=== PATIENT | male | born 1935 | race Caucasian/White ===

== ENCOUNTER 2016-09-25 00:01 | Outpatient (CLI) | payer MEDICARE ==
[2016-09-25 03:22] LABS: APPEARANCE HAZY (CLEAR); BILIRUBIN NEGATIVE (NEGATIVE); COLOR YELLOW (YELLOW); EPITHELIAL CELLS OCC /hpf (0-5); GLUCOSE NEGATIVE (NEGATIVE); KETONE NEGATIVE (NEGATIVE); LEUKOCYTE ESTERASE 2+ (NEGATIVE); NITRITE NEGATIVE (NEGATIVE); PROTEIN 3+ mg/dL (NEGATIVE); UROBILINOGEN NORMAL (NORMAL); WHITE CELLS - URINE 25-50 /hpf (0-5)
[2016-09-25 03:23] LABS: BACTERIA MANY /hpf (NONE SEEN); HYALINE CAST OCC /lpf (NONE SEEN)
== END 2016-09-25 23:59 | disposition home or self-care (01) ==
LOC: D.LABREF 00:01
PROVIDERS: Urology
DX: N39.0 Urinary tract infection, site not specified (principal)

== ENCOUNTER → 2016-09-25 01:22 | Outpatient (CLI) | payer SELFPAY | LOC: D.LABREF 01:22 | DX: N39.0 Urinary tract infection, site not specified (principal) ==

== ENCOUNTER → 2016-10-08 19:34 | Outpatient (CLI) | payer MEDICARE ==
[2016-10-08 20:58] LABS: APPEARANCE CLEAR (CLEAR); BILIRUBIN NEGATIVE (NEGATIVE); COLOR YELLOW (YELLOW); GLUCOSE 50 mg/dL (NEGATIVE); KETONE NEGATIVE (NEGATIVE); NITRITE NEGATIVE (NEGATIVE); PROTEIN 1+ mg/dL (NEGATIVE); SPECIFIC GRAVITY 1.005 (1.005-1.020); UROBILINOGEN NORMAL (NORMAL)
[2016-10-08 21:00] LABS: BACTERIA FEW /hpf (NONE SEEN); LEUKOCYTE ESTERASE 1+ (NEGATIVE); RED CELLS - URINE OCC /hpf (0-5); WHITE CELLS - URINE 25-50 /hpf (0-5)
== END | disposition home or self-care (01) ==
LOC: D.LABREF 19:34
PROVIDERS: Urology
DX: N39.0 Urinary tract infection, site not specified (principal)

== ENCOUNTER 2016-11-13 06:03 | Day surgery (SDC) | payer MEDICARE ==
[2016-11-12 13:41] LABS: BASOPHILS 0.5 % (0-2); EOSINOPHILS 5.5 % (0-7); HEMOGLOBIN 15.5 g/dL (13.5-17.5); IMMATURE GRANULOCYTES 0.4 % (0-5); LYMPHOCYTES 45.8 % (15-50); MCH 29.9 pg (26.0-34.0); MCHC 33.7 g/dL (31.0-37.0); MCV 88.8 fL (80.0-100.0); MEAN PLATELET VOLUME 8.2 fL (7.4-10.4); MONOCYTES 5.8 % (2-11); PLATELET COUNT 194 10x3/uL (130-400); RBC 5.18 10x6/uL (4.20-6.10); RDW 14.7 % (11.5-14.5)
[2016-11-12 14:07] LABS: ANION GAP 12.9 mmol/L (8-16); CALCIUM 8.7 mg/dL (8.5-10.1); CARBON DIOXIDE 26.9 mmol/L (21.0-32.0); CREATININE - SERUM 2.3 mg/dL (0.6-1.3); POTASSIUM - SERUM 4.8 mmol/L (3.5-5.1)
[~2016-11-13] VITALS: Ht 172.7 cm; Wt 68.0 kg
[~2016-11-13 06:03] MED LIST: ASPIRIN EC325 M1 PO; FISH OIL 1,0001 CA1 PO; LISINOPRIL5 MG PO
[2016-11-13 06:56] VITALS: BP 115/89; Ht 172.7 cm; Wt 68.0 kg
--- NOTE | 2016-11-13 12:06 | OP ---
PATIENT NAME: DESIRAE LEMUS JR MEDICAL RECORD: [id number] :33 LOCATION:D[facility] ADMISSION DATE: SURGEON: BETHEL GIPSON MD DATE OF OPERATION: 11/13/2016 SURGEON: Bethel Gipson M.D. ANESTHESIA: General anesthesia by Dr. Pancho Llanes. PREOPERATIVE DIAGNOSIS: Obstructive benign prostatic hypertrophy. POSTOPERATIVE DIAGNOSIS: Bulbar urethral stricture. FINDINGS: Inflatable penile prosthesis in the corpora cavernosa are intact. Bulbar urethral stricture. Well resected prostatic urethra. In the bladder, there were single ureteral orifices. No bladder tumor is seen. Moderately trabeculated bladder. PROCEDURE: Cystoscopy, urethral stricture dilation. BLOOD LOSS: None. COMPLICATIONS: None. CLINICAL HISTORY: This is an 81-year-old man who previously went into urinary retention 6 years ago. He had a TURP performed in [place]. He came to see me because he was having trouble voiding again and when we saw him in the clinic, he had incomplete bladder emptying. I assumed that he had a regrowth of his prostate and he comes now to have a repeat [facility] TURP done. He has no allergies to medication and he was given Ancef 2 grams IV consumer insight analyst to the OR. DESCRIPTION OF PROCEDURE: The patient was given induction of general anesthesia. He was then placed in the dorsal lithotomy position and prepped and draped. We used a 30-degree lens with the laser resectoscope. The visual obturator was used for visualization. The patient has inflatable penile prosthesis in place. It is intact and there was no erosion into the urethra. Going into the bulbar urethra, I met resistance from a urethral stricture. I was able to dilate this using the scope alone. Going into the prostatic urethra, the urethra has been widely resected. There is no obstruction at all. The rest of the cystoscopy was as indicated. The site of its obstruction is most likely the bulbar urethral stricture that I dilated. As such, there was no indication to perform a [facility] TURP and we concluded the case. The scope was removed and the patient was awakened and brought to the recovery room. I will see him in followup in 1 week's time to check on his postvoid residual. TRANSINT:[id number] Voice Confirmation ID: [id number] DOCUMENT ID: [id number] OPERATIVE REPORT [id number] ALLAN,MERRILL BETHEL PONCE JR, MD at 1206 CC: [id number] DICTATION DATE: 11/13/16910 LODGE OFFICER: 11/13/16 1040 [facility] 11/13/[address] [id number]
== END 2016-11-13 10:30 | disposition home or self-care (01) ==
LOC: D.OPS 06:03 → D.PAN 07:30 → D.OPS 07:40 → D.PAN 08:00 → D.OPS 10:30
PROVIDERS: Anesthesiology
DX: R33.9 Retention of urine, unspecified (principal); I25.10 Atherosclerotic heart disease of native coronary artery without angina pectoris; Z95.1 Presence of aortocoronary bypass graft; Z01.812 Encounter for preprocedural laboratory examination; N40.0 Benign prostatic hyperplasia without lower urinary tract symptoms